=== PATIENT | male | born 2000 | race Hispanic/Latino ===

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

== ENCOUNTER 2020-11-11 05:30 | Emergency (ER) | payer SELFPAY ==
--- OUTSIDE RECORDS SUMMARY | 2020-11-11 05:33 | XMS REPORT | Continuity of Care Document ---
:2000 Author Organization [facility] t Address [address] [place] [address] Dr. Whipple [address] [place] [id number] Care Team Providers Name Role Phone Unavailable Unavailable Unavailable Problems This patient has no known problems. Allergies, Adverse Reactions, Alerts This patient has no known allergies or adverse reactions. Medications This patient has no known medications. Procedures This patient has no known procedures. Results This patient has no known results.
--- NOTE | 2020-11-11 05:54 | ER ---
Nurse's Notes [facility] Name: Lemuel Sotomayor Age: 19 yrs Sex: Male : 2000 Arrival Date: 11/11/2020 Time: 05:35 Bed 6 Private MD: Diagnosis: Pain in left knee Presentation: 11/11 05:44 Chief complaint: Patient states: when he was at work this morning he started having bb pain in his left knee with a sharp pain up the back of his thigh. Coronavirus screen: At this time, the client does not indicate any symptoms associated with coronavirus-19. Ebola Screen: No symptoms or risks identified at this time. Initial Sepsis Screen: Does the patient meet any 2 criteria? No. Patient's initial sepsis screen is negative. Does the patient have a suspected source of infection? No. Patient's initial sepsis screen is negative. Risk Assessment: Do you want to hurt yourself or someone else? Patient reports no desire to harm self or others. Onset of symptoms was November 11, 2020. 05:44 Method Of Arrival: Ambulatory bb 05:44 Acuity: HARSH 4 bb Historical: - Allergies: 05:46 No Known Allergies; bb - Home Meds: 05:46 None [Active]; bb - PMHx: 05:46 ADD/ADHD; bb - Immunization history:: Adult Immunizations up to date. - Social history:: Smoking status: unknown. - Family history:: not pertinent. - Hospitalizations: : No recent hospitalization is reported. Screenin:04 Abuse screen: Denies threats or abuse. Nutritional screening: No deficits noted. jb4 Tuberculosis screening: No symptoms or risk factors identified. Fall Risk None identified. Assessment: 06:04 General: Appears in no apparent distress. comfortable, Behavior is calm, cooperative, jb4 appropriate for age. Pain: Complains of pain in left knee Pain does not radiate. Pain currently is 4 out of 10 on a pain scale. Neuro: Level of Consciousness is awake, alert, obeys commands, Oriented to person, place, time, situation. Cardiovascular: Patient's skin is warm and dry. Respiratory: Airway is patent Respiratory effort is even, unlabored, Respiratory pattern is regular, symmetrical. GI: No signs and/or symptoms were reported involving the gastrointestinal system. : No signs and/or symptoms were reported regarding the genitourinary system. EENT: No signs and/or symptoms were reported regarding the EENT system. Derm: Skin is intact, Skin is pink, warm \T\ dry. Musculoskeletal: Circulation, motion, and sensation intact. Range of motion: intact in all extremities. 06:06 Reassessment: Left knee wrapped with LENNIE bandage. jb4 Vital Signs: 05:44 BP 121 / 80; Pulse 62; Resp 14 S; Temp 97.5(O); Pulse Ox 100% on R/A; Weight 64.86 kg bb (R); Height 5 ft. 11 in. (180.34 cm) (R); Pain 4/10; 05:44 Body Mass Index 19.94 (64.86 kg, 180.34 cm) ED Course: 05:35 Patient arrived in ED. bp1 05:39 Kale Flores MD is Attending Physician. rn 05:43 Lee Palacio RN is Primary Nurse. jb4 05:45 Triage completed. bb 05:46 Arm band placed on Patient placed in an exam room, on a stretcher, on pulse oximetry. bb 06:04 Patient has correct armband on for positive identification. Bed in low position. Call jb4 light in reach. Side rails up X 1. 06:04 No provider procedures requiring assistance completed. Patient did not have IV access jb4 during this emergency room visit. Administered Medications: No medications were administered Outcome: 05:53 Discharge ordered by . rn 06:04 Discharged to home ambulatory. jb4 06:04 Condition: stable 06:04 Discharge instructions given to patient, Instructed on discharge instructions, follow up and referral plans. Demonstrated understanding of instructions, follow-up care. 06:07 Patient left the ED. jb4 Signatures: Jocelyn Clement RN RN bb Kale Flores MD MD rn Bryson, James, RN RN jb4 Jacqueline Mcleod bp1
--- NOTE | 2020-11-11 05:54 | EDPHYS ---
Physician Documentation [facility] Name: Lemuel Sotomayor Age: 19 yrs Sex: Male : 2000 Arrival Date: 11/11/2020 Time: 05:35 Bed 6 Private MD: ED Physician Kale Flores HPI: 11/11 05:49 This 19 yrs old Male presents to ER via Ambulatory with complaints of Knee rn Pain. 05:49 The patient presents with pain. The complaints affect the left knee. Onset: The rn symptoms/episode began/occurred yesterday. Modifying factors: The symptoms are alleviated by remaining still, the symptoms are aggravated by movement, weight bearing. Associated signs and symptoms: Pertinent negatives calf tenderness, fever, numbness, rash, swelling, warmth, weakness. Treatment prior to arrival includes: no previous treatment. Severity of symptoms: At their worst the symptoms were moderate, in the emergency department the symptoms have improved. The patient has not experienced similar symptoms in the past. Reports at work, began to feel pain in left knee, no trauma, no swelling, no redness, uses left leg a lot and kneels a lot. . Historical: - Allergies: 05:46 No Known Allergies; bb - Home Meds: 05:46 None [Active]; bb - PMHx: 05:46 ADD/ADHD; bb - Immunization history:: Adult Immunizations up to date. - Social history:: Smoking status: unknown. - Family history:: not pertinent. - Hospitalizations: : No recent hospitalization is reported. ROS: 05:49 Constitutional: Negative for fever, chills, and weight loss, MS/Extremity: Negative for rn injury and deformity, + left knee pain. Skin: Negative for injury, rash, and discoloration, Neuro: Negative for weakness, numbness, tingling Exam: 05:49 Constitutional: This is a well developed, well nourished patient who is awake, alert, rn and in no acute distress. Ambulated without assistance to room. MS/ Extremity: Pulses equal, no cyanosis. Neurovascular intact. Full, normal range of motion. Equal circumference. NO erythema/warmth/swelling/deformity. Vital Signs: 05:44 BP 121 / 80; Pulse 62; Resp 14 S; Temp 97.5(O); Pulse Ox 100% on R/A; Weight 64.86 kg bb (R); Height 5 ft. 11 in. (180.34 cm) (R); Pain 410; 05:44 Body Mass Index 19.94 (64.86 kg, 180.34 cm) bb MDM: 05:39 Patient medically screened. rn 05:49 Differential diagnosis: tendonitis, small effusion. Data reviewed: vital signs, nurses rn notes, and as a result, I will discharge patient. Counseling: I had a detailed discussion with the patient and/or guardian regarding: the historical points, exam findings, and any diagnostic results supporting the discharge/admit diagnosis, the need for outpatient follow up, to return to the emergency department if symptoms worsen or persist or if there are any questions or concerns that arise at home. Refusal of service: The patient/guardian displays adequate decision making capability and despite a detailed discussion of alternatives, benefits, risks, and consequences refuses: Medications. Special discussion: I discussed with the patient/guardian in detail that at this point there is no indication for admission to the hospital. It is understood, however, that if the symptoms persist or worsen the patient needs to return immediately for re-evaluation. Based on the history and exam findings, there is no indication for further emergent testing or inpatient evaluation. I discussed with the patient/guardian the need to see the orthopedic surgeon for further evaluation of the symptoms. ED course: Recommend RICE therapy, aleve, knee brace. No signs of fracture/dislocation/infection.. Administered Medications: No medications were administered Disposition: 11/11/20 05:53 Discharged to Home. Impression: Pain in left knee. - Condition is Stable. - Discharge Instructions: Knee Pain. - Medication Reconciliation Form, Thank You Letter, Antibiotic Education, Prescription Opioid Use form. - Follow up: Private Physician; When: As needed; Reason: Recheck today's complaints, Re-evaluation by your physician. - Problem is new. - Symptoms have improved. Signatures: Jocelyn Clement RN RN Kale Mustafa MD MD rn Bryson, James, RN RN jb4 Corrections: (The following items were deleted from the chart) 06:07 05:53 11/11/2020 05:53 Discharged to Home. Impression: Pain in left knee. Condition is jb4 Stable. Forms are Medication Reconciliation Form, Thank You Letter, Antibiotic Education, Prescription Opioid Use. Follow up: Private Physician; When: As needed; Reason: Recheck today's complaints, Re-evaluation by your physician. Problem is new. Symptoms have improved. rn
[2020-11-11 06:18] VITALS: BP 121/80; TEMP 97.5; O2SAT 100
== END 2020-11-11 06:07 | disposition home or self-care (01) ==
LOC: ER 05:30
DX: M25.562 Pain in left knee (principal); F90.9 Attention-deficit hyperactivity disorder, unspecified type
CPT/HCPCS: 99283

== ENCOUNTER 2021-05-17 19:03 | Emergency (ER) | payer SELFPAY ==
--- OUTSIDE RECORDS SUMMARY | 2021-05-17 19:17 | XMS REPORT | Continuity of Care Document ---
:2000 Author Organization [facility] t Address [address] [place] [address] Dr. Whipple [address] [place] [id number] Care Team Providers Name Role Phone Unavailable Unavailable Unavailable Problems This patient has no known problems. Allergies, Adverse Reactions, Alerts This patient has no known allergies or adverse reactions. Medications This patient has no known medications. Procedures This patient has no known procedures. Results This patient has no known results.
--- NOTE | 2021-05-17 22:12 | EDPHYS ---
Physician Documentation [facility] Name: Lemuel Sotomayor Age: 20 yrs Sex: Male : 2000 Arrival Date: 05/17/2021 Time: 19:07 Bed 12 Private MD: ED Physician Brain Forbes HPI: 05/17 19:30 This 20 yrs old Male presents to ER via Ambulatory with complaints of r/o jmm covid. 19:30 The patient or guardian reports cough. Modifying factors: The symptoms are alleviated jmm by nothing. the symptoms are aggravated by nothing. Associated signs and symptoms: Pertinent positives: fever, sore throat. It is unknown whether or not the patient has had similar symptoms in the past. The patient has not recently seen a physician. Historical: - Allergies: 19:14 No Known Allergies; jh5 - Home Meds: 19:14 None [Active]; 5 - PMHx: 19:14 ADD/ADHD; [facility] - Immunization history:: Adult Immunizations up to date. - Social history:: Smoking status: Patient reports the use of cigarette tobacco products, Patient uses alcohol, occasionally. ROS: 19:30 Constitutional: Positive for body aches, fever. jmm 19:30 ENT: Positive for sinus congestion, sore throat. 19:30 Respiratory: Positive for cough. 19:30 All other systems are negative. Exam: 19:30 Constitutional: This is a well developed, well nourished patient who is awake, alert, jmm and in no acute distress. Head/Face: atraumatic. Eyes: EOMI, no conjunctival erythema appreciated ENT: Moist Mucus Membranes Neck: Trachea midline, Supple Chest/axilla: Normal chest wall appearance and motion. Cardiovascular: Regular rate and rhythm. No edema appreciated Respiratory: Normal respirations, no respiratory distress appreciated Abdomen/GI: Non distended, soft Back: Normal ROM Skin: General appearance color normal MS/ Extremity: Moves all extremities, no obvious deformities appreciated, no edema noted to the lower extremities Neuro: Awake and alert, normal gait Psych: Behavior is normal, Mood is normal, Patient is cooperative and pleasant Vital Signs: 19:11 BP 118 / 76; Pulse 98; Resp 18; Temp 99.6; Pulse Ox 96% ; Weight 61.69 kg; Height 5 ft. jh 11 in. (180.34 cm); 22:21 Pulse 90; Resp 16 S; Temp 100(O); Pulse Ox 99% on R/A; bb 19:11 Body Mass Index 18.97 (61.69 kg, 180.34 cm) 5 MDM: 21:34 Patient medically screened. [facility] 22:10 Data reviewed: vital signs, nurses notes. Counseling: I had a detailed discussion with mary the patient and/or guardian regarding: the historical points, exam findings, and any diagnostic results supporting the discharge/admit diagnosis, lab results, the need for outpatient follow up, to return to the emergency department if symptoms worsen or persist or if there are any questions or concerns that arise at home. 05/17 19:30 Order name: COVID-19 SARS RT PCR (Document "Date of Onset" if Symptomatic); Complete bb Time: 21:48 Administered Medications: No medications were administered Disposition: 05/18 07:19 Co-signature as Attending Physician, Brain Forbes MD I agree with the assessment and [facility] plan of care. Disposition Summary: 05/17/21 22:12 Discharge Ordered Location: Home [facility] Condition: Stable [facility] Diagnosis - Coronavirus infection, unspecified [facility] Followup: [facility] - With: Private Physician - When: 2 - 3 days - Reason: Recheck today's complaints, Continuance of care, Re-evaluation by your physician Discharge Instructions: - Discharge Summary Sheet [facility] - COVID-[address] [facility] Forms: - Medication Reconciliation Form [facility] - Thank You Letter [facility] - Antibiotic Education [facility] - Prescription Opioid Use [facility] Signatures: Dispatcher [employer] Brain Lockhart MD MD cha Mickail, Joel, PA PA jmm Rees, Jessica, RN RN jh5
--- NOTE | 2021-05-17 22:12 | ER ---
Nurse's Notes [facility] Name: Lemuel Sotomayor Age: 20 yrs Sex: Male : 2000 Arrival Date: 05/17/2021 Time: 19:07 Bed 12 Private MD: Diagnosis: Coronavirus infection, unspecified Presentation: 05/17 19:11 Chief complaint: Patient states: "I have runny nose, face is sore, and I have 102 fever jh5 since yesterday". Coronavirus screen: Vaccine status: Patient reports being unvaccinated. Client denies travel out of the [place] in the last 14 days. Ebola Screen: Patient negative for fever greater than or equal to 101.5 degrees Fahrenheit, and additional compatible Ebola Virus Disease symptoms Patient denies exposure to infectious person. Patient denies travel to an Ebola-affected area in the 21 days before illness onset. No symptoms or risks identified at this time. Initial Sepsis Screen: Does the patient meet any 2 criteria? No. Patient's initial sepsis screen is negative. Does the patient have a suspected source of infection? No. Patient's initial sepsis screen is negative. Risk Assessment: Do you want to hurt yourself or someone else? Patient reports no desire to harm self or others. Onset of symptoms was May 16, 2021. 19:11 Method Of Arrival: Ambulatory [facility] 19:11 Acuity: HARSH 3 jh5 Triage Assessment: 19:15 General: Appears uncomfortable, slender, Behavior is calm, cooperative, appropriate for [facility] age. Pain: Complains of pain in face Pain currently is 8 out of 10 on a pain scale. Neuro: No deficits noted. Level of Consciousness is awake, alert, obeys commands, Oriented to person, place, time, situation, Speech is normal. Cardiovascular: Capillary refill < 3 seconds Patient's skin is warm and dry. Respiratory: No deficits noted. Airway is patent Trachea midline Respiratory effort is even, unlabored, Respiratory pattern is regular, symmetrical. Historical: - Allergies: 19:14 No Known Allergies; [facility] - Home Meds: 19:14 None [Active]; [facility] - PMHx: 19:14 ADD/ADHD; [facility] - Immunization history:: Adult Immunizations up to date. - Social history:: Smoking status: Patient reports the use of cigarette tobacco products, Patient uses alcohol, occasionally. Screenin:28 Abuse screen: Denies threats or abuse. Denies injuries from another. Nutritional [facility] screening: No deficits noted. Tuberculosis screening: No symptoms or risk factors identified. Fall Risk None identified. Assessment: 19:35 Reassessment: see triage assessment. [facility] 22:20 Reassessment: Patient is alert, oriented x 3, equal unlabored respirations, skin bb warm/dry/pink. pt seen by this nurse on discharge pt verbalized understanding of and agrees to plan of care discharge instructions given pt ambulated with steady gait to exit accompanied by parent. Vital Signs: 19:11 BP 118 / 76; Pulse 98; Resp 18; Temp 99.6; Pulse Ox 96% ; Weight 61.69 kg; Height 5 ft. [facility] 11 in. (180.34 cm); 22:21 Pulse 90; Resp 16 S; Temp 100(O); Pulse Ox 99% on R/A; bb 19:11 Body Mass Index 18.97 (61.69 kg, 180.34 cm) [facility] ED Course: 19:07 Patient arrived in ED. as 19:14 Triage completed. [facility] 19:28 Arm band placed on right wrist. [facility] 19:28 Patient has correct armband on for positive identification. Adult w/ patient. [facility] 19:28 No provider procedures requiring assistance completed. [facility] 19:35 COVID-19 SARS RT PCR (Document "Date of Onset" if Symptomatic) Sent. [facility] 21:27 [facility] 21:27 Brain Forbes MD is Attending Physician. [facility] 22:23 Patient did not have IV access during this emergency room visit. bb Administered Medications: No medications were administered Outcome: 22:12 Discharge ordered by . mary 22:23 Patient left the ED. bb 22:23 Discharged to home ambulatory. 22:23 Condition: stable 22:23 Discharge instructions given to patient, Instructed on discharge instructions, follow up and referral plans. Demonstrated understanding of instructions, follow-up care. Signatures: Jeremy Garza PA PA jmm Martinez, Amelia as Ballard, Brenda, RN RN Rosalia Chilel RN RN [facility]
[2021-05-17 23:13] VITALS: BP 118/76; TEMP 99.6; O2SAT 96
== END 2021-05-17 22:23 | disposition home or self-care (01) ==
LOC: ER 19:03
DX: U07.1 COVID-19 (principal)
CPT/HCPCS: 99283; U0003

== ENCOUNTER 2021-05-18 20:07 | Emergency (ER) | payer SELFPAY ==
--- OUTSIDE RECORDS SUMMARY | 2021-05-18 20:10 | XMS REPORT | Continuity of Care Document ---
:2000 Author Organization [facility] t Address [address] [place] [address] Dr. Whipple [address] [place] [id number] Care Team Providers Name Role Phone Unavailable Unavailable Unavailable Problems This patient has no known problems. Allergies, Adverse Reactions, Alerts This patient has no known allergies or adverse reactions. Medications This patient has no known medications. Procedures This patient has no known procedures. Results This patient has no known results.
--- NOTE | 2021-05-18 21:35 | EDPHYS ---
Physician Documentation [facility] Name: Lemuel Sotomayor Age: 20 yrs Sex: Male : 2000 Arrival Date: 05/18/2021 Time: 20:09 Bed 12 Private MD: ED Physician Dilshad Abrams HPI: 05/18 21:20 This 20 yrs old Male presents to ER via EMS with complaints of Anxiety. cp 21:20 The patient is experiencing blurred vision. cp 21:20 Onset: The symptoms/episode began/occurred today. Duration: the symptoms single episode cp that is now resolved. Associated signs and symptoms: Pertinent positives: dizziness, cough. Patient reports he was at home with family member when he noticed his vision became blurry. Patient reports testing positive yesterday for COVID-19. Historical: - Allergies: 20:15 No Known Allergies; ld1 - Home Meds: 20:15 None [Active]; ld1 - PMHx: 20:15 ADD/ADHD; Anxiety; ld1 - PSHx: 20:15 None; ld1 - Immunization history:: Adult Immunizations not up to date, Client reports having NOT received the Covid vaccine. - Social history:: Smoking status: Patient reports the use of cigarette tobacco products, smokes one-half pack cigarettes per day, Patient uses alcohol, on a daily basis. Patient/guardian denies using street drugs. ROS: 21:25 Constitutional: Negative for body aches, chills, fever, poor PO intake. cp 21:25 Eyes: Positive for blurry vision, Negative for pain, redness, vision loss. cp 21:25 ENT: Negative for drainage from ear(s), ear pain, difficulty swallowing, difficulty handling secretions. 21:25 Cardiovascular: Negative for chest pain. 21:25 Respiratory: Negative for cough, shortness of breath, wheezing. 21:25 Abdomen/GI: Negative for abdominal pain, nausea, vomiting, and diarrhea. 21:25 Skin: Negative for rash. 21:25 Neuro: Positive for dizziness, Negative for altered mental status, headache, weakness. 21:25 All other systems are negative. Exam: 21:30 Constitutional: The patient appears in no acute distress, alert, awake, non-toxic, well cp developed, well nourished. 21:30 Head/Face: Normocephalic, atraumatic. cp 21:30 Eyes: Periorbital structures: appear normal, Pupils: equal, round, and reactive to light and accomodation, Extraocular movements: intact throughout, Conjunctiva: normal, no exudate, no injection, Sclera: no appreciated abnormality, Lids and lashes: appear normal, bilaterally. 21:30 ENT: External ear(s): are unremarkable, Nose: is normal, Mouth: Lips: moist, Oral mucosa: pink and intact, moist, Posterior pharynx: Airway: no evidence of obstruction, patent, Tonsils: are normal in appearance, erythema, is not appreciated, exudate, is not appreciated. 21:30 Neck: ROM/movement: is normal, is supple, without pain, no range of motions limitations, no meningismus. 21:30 Chest/axilla: Inspection: normal, Palpation: is normal, no crepitus, no tenderness. 21:30 Cardiovascular: Rate: normal, Rhythm: regular. 21:30 Respiratory: the patient does not display signs of respiratory distress, Respirations: normal, no use of accessory muscles, no retractions, labored breathing, is not present, Breath sounds: are clear throughout, no bronchial sounds. 21:30 Abdomen/GI: Exam negative for discomfort, distension, guarding, Inspection: abdomen appears normal. 21:30 Neuro: Orientation: to person, place \T\ time. Mentation: is normal, Motor: moves all fours, strength is normal, Sensation: is normal. Vital Signs: 20:13 BP 122 / 92; Pulse 87; Resp 24; Temp 99.2; Pulse Ox 100% on R/A; Weight 61.69 kg; ld1 Height 5 ft. 11 in. (180.34 cm); Pain 0/10; 20:13 Body Mass Index 18.97 (61.69 kg, 180.34 cm) ld1 MDM: 21:16 Patient medically screened. cp 21:30 Differential diagnosis: dehydration, anxiety, electrolyte abnormality, sepsis. cp Administered Medications: No medications were administered Disposition Summary: 05/18/21 21:34 Discharge Ordered Location: Home cp Problem: new cp Symptoms: have improved cp Condition: Stable cp Diagnosis - Other subjective visual disturbances - blurry vision cp - SARS-associated coronavirus as the cause of diseases classified elsewhere cp Followup: cp - With: Private Physician - When: 2 - 3 days - Reason: Worsening of condition Discharge Instructions: - Discharge Summary Sheet cp - COVID-19 cp - Things to Know about the COVID-19 Pandemic - [facility] cp - 10 Things You Can Do to Manage Your COVID-19 Symptoms at Home - [facility] cp - COVID-19: Quarantine vs. Isolation - [facility] cp - Prevent the Spread of COVID-19 if You Are Sick - [facility] cp Forms: - Medication Reconciliation Form cp - Thank You Letter cp - Antibiotic Education cp - Prescription Opioid Use cp Addendum: 05/20/2021 03:05 Co-signature as Attending Physician, Dilshad Abrams MD. m Signatures: Brain Arndt PA PA cp Holmes, Maurice, MD MD mh7 Lynette Day RN RN ld1
--- NOTE | 2021-05-18 21:35 | ER ---
Nurse's Notes [facility] Name: Lemuel Sotomayor Age: 20 yrs Sex: Male : 2000 Arrival Date: 05/18/2021 Time: 20:09 Bed 12 Private MD: Diagnosis: Other subjective visual disturbances-blurry vision;SARS-associated coronavirus as the cause of diseases classified elsewhere Presentation: 05/18 20:13 Chief complaint: Patient states: I have really bad anxiety and I tested positive ld1 yesterday for COVID. I was told if I start feeling worse that I need to come back to the ER. Pt reports vision going blurry. Coronavirus screen: Client reports previous positive COVID test result. Date of collection: May 17, 2021. Ebola Screen: (+) Ebola Screening. Initial Sepsis Screen: Does the patient meet any 2 criteria? No. Patient's initial sepsis screen is negative. Does the patient have a suspected source of infection? No. Patient's initial sepsis screen is negative. Risk Assessment: Do you want to hurt yourself or someone else? Patient reports no desire to harm self or others. Onset of symptoms was May 18, 2021. 20:13 Method Of Arrival: EMS: [facility] ld1 20:13 Acuity: HARSH 3 ld1 Triage Assessment: 20:15 General: Appears in no apparent distress. comfortable, Behavior is cooperative, ld1 anxious. Pain: Complains of pain in forehead. Pain: Pain does not radiate. Pain currently is 8 out of 10 on a pain scale. Quality of pain is described as throbbing, Pain began suddenly, Is continuous. EENT: No signs and/or symptoms were reported regarding the EENT system. Neuro: Level of Consciousness is awake, alert, obeys commands, Oriented to person, place, time, situation, Appropriate for age. Cardiovascular: Capillary refill < 3 seconds Patient's skin is warm and dry. Respiratory: Airway is patent Respiratory effort is even, labored, Respiratory pattern is regular, symmetrical. GI: Abdomen is flat, non-distended. : No signs and/or symptoms were reported regarding the genitourinary system. Derm: No signs and/or symptoms reported regarding the dermatologic system. Musculoskeletal: No signs and/or symptoms reported regarding the musculoskeletal system. Historical: - Allergies: 20:15 No Known Allergies; ld1 - Home Meds: 20:15 None [Active]; ld1 - PMHx: 20:15 ADD/ADHD; Anxiety; ld1 - PSHx: 20:15 None; ld1 - Immunization history:: Adult Immunizations not up to date, Client reports having NOT received the Covid vaccine. - Social history:: Smoking status: Patient reports the use of cigarette tobacco products, smokes one-half pack cigarettes per day, Patient uses alcohol, on a daily basis. Patient/guardian denies using street drugs. Screenin:12 Abuse screen: Denies threats or abuse. Denies injuries from another. Nutritional ld1 screening: No deficits noted. Tuberculosis screening: No symptoms or risk factors identified. Fall Risk None identified. Assessment: 21:12 Reassessment: See triage assessment. ld1 21:55 Reassessment: Patient appears in no apparent distress at this time. Patient and/or vg1 family updated on plan of care and expected duration. Pain level reassessed. Patient is alert, oriented x 3, equal unlabored respirations, skin warm/dry/pink. Patient denies pain at this time. Vital Signs: 20:13 BP 122 / 92; Pulse 87; Resp 24; Temp 99.2; Pulse Ox 100% on R/A; Weight 61.69 kg; ld1 Height 5 ft. 11 in. (180.34 cm); Pain 0/10; 20:13 Body Mass Index 18.97 (61.69 kg, 180.34 cm) ld1 ED Course: 20:09 Patient arrived in ED. bp1 20:15 Triage completed. ld1 20:15 Arm band placed on right wrist. ld1 21:12 Brain Arndt PA is PHCP. cp 21:12 Dilshad Abrams MD is Attending Physician. cp 21:12 Lynette Day RN is Primary Nurse. ld1 21:12 Patient has correct armband on for positive identification. Bed in low position. Call ld1 light in reach. Pulse ox on. NIBP on. 21:12 Side rails up X2. Door closed. Noise minimized. Warm blanket given. ld1 21:12 No provider procedures requiring assistance completed. ld1 21:56 Patient did not have IV access during this emergency room visit. vg1 Administered Medications: No medications were administered Outcome: 21:34 Discharge ordered by . cp 21:56 Discharged to home ambulatory, with family. vg1 21:56 Condition: stable 21:56 Discharge instructions given to patient, Instructed on discharge instructions, follow up and referral plans. Demonstrated understanding of instructions, follow-up care. 21:56 Patient left the ED. vg1 Signatures: Brain Arndt PA PA cp Garcia, Victoria, RN RN vg1 Jacqueline Mcleod Lauren, RN RN ld1
[2021-05-18 22:36] VITALS: BP 122/92; TEMP 99.2; O2SAT 100
== END 2021-05-18 21:56 | disposition home or self-care (01) ==
LOC: ER 20:07
DX: U07.1 COVID-19 (principal); F17.210 Nicotine dependence, cigarettes, uncomplicated
CPT/HCPCS: 99283

== ENCOUNTER 2021-11-06 23:11 | Emergency (ER) | payer OTHER, SELFPAY ==
--- OUTSIDE RECORDS SUMMARY | 2021-11-06 23:14 | XMS REPORT | Continuity of Care Document ---
:2000 Author Organization [facility] t Address [address] [place] [address] Dr. Whipple [address] [place] [id number] Care Team Providers Name Role Phone Unavailable Unavailable Unavailable Problems This patient has no known problems. Allergies, Adverse Reactions, Alerts This patient has no known allergies or adverse reactions. Medications This patient has no known medications. Procedures This patient has no known procedures. Results This patient has no known results.
--- NOTE | 2021-11-07 01:19 | ER ---
Nurse's Notes [facility] Name: Lemuel Sotomayor Age: 20 yrs Sex: Male : 2000 Arrival Date: 11/06/2021 Time: 23:14 Bed 8 Private MD: Diagnosis: Chest pain, unspecified Presentation: 11/06 23:28 Chief complaint: Patient states: Chest pain intermittent x 2 days, reports pain changes lp1 from left and right side of chest, states nausea; Denies fever. Coronavirus screen: At this time, the client does not indicate any symptoms associated with coronavirus-19. Ebola Screen: No symptoms or risks identified at this time. Risk Assessment: Do you want to hurt yourself or someone else? Patient reports no desire to harm self or others. Onset of symptoms was November 06, 2021. 23:28 Method Of Arrival: Ambulatory lp1 23:28 Acuity: HARSH 3 lp1 23:31 Initial Sepsis Screen: Does the patient meet any 2 criteria? No. Patient's initial lp1 sepsis screen is negative. Does the patient have a suspected source of infection? No. Patient's initial sepsis screen is negative. Triage Assessment: 23:33 General: Appears in no apparent distress. Behavior is calm, cooperative. Pain: lp1 Complains of pain in anterior aspect of right upper chest and anterior aspect of left upper chest. Neuro: Level of Consciousness is awake, alert, obeys commands. Respiratory: Respiratory effort is even, unlabored. Derm: Skin is pink, warm \T\ dry. Historical: - Allergies: 23:30 No Known Allergies; lp1 - Home Meds: 23:30 None [Active]; lp1 - PMHx: 23:30 ADD/ADHD; Anxiety; lp1 - PSHx: 23:30 None; lp1 - Immunization history:: Adult Immunizations up to date, Client reports receiving the 2nd dose of the Covid vaccine. - Social history:: Smoking status: Patient reports the use of cigarette tobacco products, denies chronic smoking, but will smoke occasionally, Reported history of juuling and/or vaping. Patient/guardian denies using alcohol, street drugs. - Family history:: not pertinent. - Hospitalizations: : No recent hospitalization is reported. Screenin/10 01:15 Abuse screen: Denies threats or abuse. Denies injuries from another. Nutritional lg3 screening: No deficits noted. Tuberculosis screening: No symptoms or risk factors identified. Fall Risk None identified. Assessment: 01:15 General: Appears in no apparent distress. comfortable, Behavior is cooperative, lg3 anxious. Pain: Complains of pain in chest Pain does not radiate. Neuro: No deficits noted. Aquino Agitation-Sedation Scale (RASS): 0 - Alert and Calm Level of Consciousness is awake, alert, obeys commands, Oriented to person, place, time, situation. Cardiovascular: Reports chest pain, Capillary refill < 3 seconds Clubbing of nail beds is absent JVD is absent Patient's skin is warm and dry. Respiratory: No deficits noted. Airway is patent Trachea midline Respiratory effort is even, unlabored, Respiratory pattern is regular, symmetrical. GI: No deficits noted. No signs and/or symptoms were reported involving the gastrointestinal system. : No deficits noted. No signs and/or symptoms were reported regarding the genitourinary system. EENT: No deficits noted. No signs and/or symptoms were reported regarding the EENT system. Derm: No deficits noted. No signs and/or symptoms reported regarding the dermatologic system. Skin is intact, is healthy with good turgor, Skin is dry, Skin is pink, warm \T\ dry. Musculoskeletal: No deficits noted. No signs and/or symptoms reported regarding the musculoskeletal system. Circulation, motion, and sensation intact. Range of motion: intact in all extremities. Vital Signs: 11/06 23:31 BP 114 / 85; Pulse 62; Resp 16; Temp 98(O); Pulse Ox 100% on R/A; Weight 63.5 kg (R); lp1 Height 5 ft. 11 in. (180.34 cm); Pain 0/10; 05 01:16 BP 102 / 62; Pulse 56; Resp 16 S; Pulse Ox 100% on R/A; lg3 11/06 23:31 Body Mass Index 19.53 (63.50 kg, 180.34 cm) lp1 ED Course: 11/06 23:14 Patient arrived in ED. bp1 23:28 Arm band placed on right wrist. lp1 23:30 Triage completed. lp1 23:33 Patient maintains SpO2 saturation greater than 95% on room air. lp1 23:49 Kale Flores MD is Attending Physician. rn 23:56 Wei, Stella, RN is Primary Nurse. lg3 11/07 00:13 XRAY Chest Pa And Lat (2 Views) In Process Unspecified. EDMS 01:15 Patient has correct armband on for positive identification. Placed in gown. Bed in low lg3 position. Call light in reach. Side rails up X 1. Client placed on continuous cardiac and pulse oximetry monitoring. NIBP monitoring applied. Door closed. Noise minimized. Warm blanket given. Administered Medications: No medications were administered Outcome: 01:19 Discharge ordered by . rn 02:13 Patient left the ED. lg3 Signatures: Dispatcher [employer] EDMS Kale Flores MD MD rn Pena, Laura RN RN lp1 Stella Wei, RN RN lg3 Jacqueline Mcleod bp1
--- NOTE | 2021-11-07 01:19 | EDPHYS ---
Physician Documentation [facility] Name: Lemuel Sotomayor Age: 20 yrs Sex: Male : 2000 Arrival Date: 11/06/2021 Time: 23:14 Bed 8 Private MD: ED Physician Kale Flores HPI: 11/07 01:13 This 20 yrs old Male presents to ER via Ambulatory with complaints of Chest Pain. rn 01:13 The patient or guardian reports chest pain that is located primarily in the chest rn diffusely. The pain does not radiate. Associated signs and symptoms: The patient has no apparent associated signs or symptoms, Pertinent negatives: abdominal pain, cough, dizziness, lower extremity pain, lower extremity swelling, palpitations, shortness of breath, syncope, vomiting. The chest pain is described as sharp, stabbing. Duration: The patient or guardian reports multiple episodes, that are intermittent. Duration: The patient or guardian reports multiple episodes, the episodes last approximately 10 second(s). Modifying factors: The symptoms are alleviated by nothing. the symptoms are aggravated by nothing. Severity of pain: At its worst the pain was mild in the emergency department the pain is unchanged. The patient has experienced similar episodes in the past. The patient has not recently seen a physician. Pt reports weeks of bilateral chest pain, intermittent, sharp/stabbing, nothing makes it better or worse. No famhx of early cardiac problems/disease. No trauma. No hemoptysis. No leg pain or swelling. + vapes. Reports "happening for weeks". Historical: - Allergies: 11/06 23:30 No Known Allergies; lp1 - Home Meds: 23:30 None [Active]; lp1 - PMHx: 23:30 ADD/ADHD; Anxiety; lp1 - PSHx: 23:30 None; lp1 - Immunization history:: Adult Immunizations up to date, Client reports receiving the 2nd dose of the Covid vaccine. - Social history:: Smoking status: Patient reports the use of cigarette tobacco products, denies chronic smoking, but will smoke occasionally, Reported history of juuling and/or vaping. Patient/guardian denies using alcohol, street drugs. - Family history:: not pertinent. - Hospitalizations: : No recent hospitalization is reported. ROS: 11/07 01:13 Constitutional: Negative for fever, chills, and weight loss, Eyes: Negative for injury, rn pain, redness, and discharge, ENT: Negative for injury, pain, and discharge, Neck: Negative for injury, pain, and swelling, Cardiovascular: Negative for palpitations, and edema, Respiratory: Negative for shortness of breath, cough, wheezing Abdomen/GI: Negative for abdominal pain, nausea, vomiting, diarrhea, and constipation, Back: Negative for injury and pain, : Negative for injury, bleeding, discharge, and swelling, MS/Extremity: Negative for injury and deformity, Skin: Negative for injury, rash, and discoloration, Neuro: Negative for headache, weakness, numbness, tingling, and seizure. Exam: 01:13 Constitutional: This is a well developed, well nourished patient who is awake, alert, rn and in no acute distress, seems anxious. Head/Face: Normocephalic, atraumatic. Eyes: Periorbital areas with no swelling, redness, or edema. Chest/axilla: Normal chest wall appearance and motion. Nontender with no deformity. No lesions are appreciated. Cardiovascular: Regular rate and rhythm. No pulse deficits. Respiratory: No increased work of breathing, no retractions or nasal flaring. Abdomen/GI: Soft, non-tender Skin: Warm, dry with normal turgor. Normal color with no rashes, no lesions, and no evidence of cellulitis. MS/ Extremity: Pulses equal, no cyanosis. Neurovascular intact. Full, normal range of motion. Equal circumference. Neuro: Awake and alert, GCS 15 Vital Signs: 11/06 23:31 BP 114 / 85; Pulse 62; Resp 16; Temp 98(O); Pulse Ox 100% on R/A; Weight 63.5 kg (R); lp1 Height 5 ft. 11 in. (180.34 cm); Pain 0/10; 11/07 01:16 BP 102 / 62; Pulse 56; Resp 16 S; Pulse Ox 100% on R/A; lg3 11/06 23:31 Body Mass Index 19.53 (63.50 kg, 180.34 cm) lp1 MDM: 11/06 23:50 Patient medically screened. rn 11/07 01:13 Differential diagnosis: acute pericarditis, anxiety, chest wall pain, costochondritis, rn pleurisy, pneumothorax. HEART Score: History: Slightly Suspicious (0), ECG: Non specific repolarization disturbance / LBTB / PM (1), Age: < or = 45 years (0), Risk Factors: No Risk Factors Known (0), Total Score = 1. Data reviewed: vital signs, nurses notes, EKG, radiologic studies, plain films, and as a result, I will discharge patient. Counseling: I had a detailed discussion with the patient and/or guardian regarding: the historical points, exam findings, and any diagnostic results supporting the discharge/admit diagnosis, radiology results, the need for outpatient follow up, to return to the emergency department if symptoms worsen or persist or if there are any questions or concerns that arise at home. Special discussion: Based on the patient's history, exam, and Dx evaluation, there is no indication for emergent intervention or inpatient Tx. It is understood by the patient/guardian that if the Sx's persist or worsen they need to return immediately for re-evaluation. I discussed with the patient/guardian in detail that at this point there is no indication for admission to the hospital. It is understood, however, that if the symptoms persist or worsen the patient needs to return immediately for re-evaluation. ED course: CXR clear, normal vitals, ECG no ischemia and nonspecific repolarization. Will dc home with return precautions, motrin, and cessation of vaping.. 11/06 23:39 Order name: XRAY Chest Pa And Lat (2 Views) rn 11/06 23:39 Order name: EKG; Complete Time: 23:39 rn 11/06 23:39 Order name: EKG - Nurse/Tech; Complete Time: 00:38 rn Administered Medications: No medications were administered Disposition Summary: 11/07/21 01:19 Discharge Ordered Location: Home rn Problem: new rn Symptoms: have improved rn Condition: Stable rn Diagnosis - Chest pain, unspecified rn Followup: rn - With: Private Physician - When: As needed - Reason: Recheck today's complaints, Re-evaluation by your physician Discharge Instructions: - Discharge Summary Sheet rn - Nonspecific Chest Pain, Adult rn - Pleurisy rn - Steps to Quit Smoking rn Forms: - Medication Reconciliation Form rn - Thank You Letter rn - Antibiotic biology internship - Prescription Opioid Use rn Signatures: [facility] ED[facility] Kale Flores MD MD rn Pena, Laura, RN RN lp1 Corrections: (The following items were deleted from the chart) 01:14 01:13 Pt reports weeks of bilateral chest pain, intermittent, sharp/stabbing, nothing rn makes it better or worse. No famhx of early cardiac problems/disease. No trauma. No hemoptysis. No leg pain or swelling. + vapes. . rn
[2021-11-07 03:21] VITALS: TEMP 98; O2SAT 100
[2021-11-07 03:22] VITALS: BP 102/62
--- NOTE | 2021-11-07 10:18 | EKG ---
Test Date: 2021-11-07 Test Time: 00:32:20 [employer] Chief: MEASUREMENT RESULTS: Intervals: Rate: 52 AK: 152 QRSD: 86 QT: 400 QTc: 372 [place]: P: 70 AK: 152 QRS: 62 T: 78 INTERPRETIVE STATEMENTS: Sinus bradycardia with sinus arrhythmia Early repolarization Otherwise normal ECG No previous ECG available for comparison Electronically Signed On 11-07-21 10:17:23 CDT by Alessandro Chavarria
--- NOTE | 2021-11-07 12:55 | RAD REPORT ---
EXAM DESCRIPTION: RAD - Chest Pa And Lat (2 Views) - 11/07/2021 12:11 am CLINICAL HISTORY: 1 years Male, CHEST PAIN COMPARISON: None FINDINGS: No focal lung consolidation. No pleural effusion. No pneumothorax. Cardiomediastinal silhouette is within normal limits. No acute osseous abnormality. IMPRESSION: No acute cardiopulmonary disease. Electronically signed by: Fausto Mishra DO 11/07/2021 12:39 AM CDT Due to temporary technical issues with the PACS/Fluency reporting system, reports are being signed by the in house radiologists without review as a courtesy to insure prompt reporting. The interpreting radiologist is fully responsible for the content of the report.
== END 2021-11-07 02:13 | disposition home or self-care (01) ==
LOC: ER 23:11
DX: R07.9 Chest pain, unspecified (principal); F17.210 Nicotine dependence, cigarettes, uncomplicated
CPT/HCPCS: 71046; 93005; 99284

== ENCOUNTER 2022-05-21 01:08 | Emergency (ER) | payer SELFPAY ==
--- OUTSIDE RECORDS SUMMARY | 2022-05-21 01:11 | XMS REPORT | Continuity of Care Document ---
:2000 Author Organization [facility] t Address [address] [place] [address] Care Team Providers Name Role Phone Sarah Zhang MD Primary Care Physician [phone] Doctor Unassigned, [place] Attending Clinician Unavailable Problems Condition Condition Condition Status Onset Resolution Last Treating Co mments Source Name Details Category Date Date Treatment Clinician Date LVH (left LVH (left Disease Active Overview: Univers ventricula ventricula 1 Formattin ity of r r 00:00: g of this [place] hypertroph hypertroph 00 note Me dical y) y) might be Branch different from the original. Review of records indicate LVH on ECG done at age 12 (no date on record). Deviated Deviated Disease Active Overview: Un hedy nasal nasal 07-07 Formattin ity of septum septum 00:00: g of this [place] 00 note Medical might be Branch different from the original. Records on CT scan done show mild left deviation of nasal septum on CT done 0. Will scan records to EMR. Allergies, Adverse Reactions, Alerts This patient has no known allergies or adverse reactions. Social History Social Habit Start Date Stop Date Quantity Comments Source Alcohol intake 2018-06-26 2018-06-26 Current University of 00:00:00 00:00:00 non-drinker of [facility] alcohol ([facility]) [employer] Tobacco use and 2018-06-05 2018-06-05 Smokeless tobacco Un iversity of exposure 00:00:00 00:00:[address] [facility] Sex Assigned At [birth year] Universit y of 00:00:00 00:00:00 [facility] Smoking Status Start Date Stop Date Source Never smoked tobacco [facility] Medications Ordered Filled Start Stop Current Ordering Indication Dosage Frequency Signature Comments Components Source Medication Medication Date Date Medication? Clinician (SIG) Name Name PANTOPRAZOL 2017-07 Yes Take by Uni vers E SODIUM 2-06 mouth. ity of (PANTOPRAZO 13:17: [place] LE ORAL) [address] [place] [address] CETIRIZINE 2017-07 Yes Take by Univ ers HCL (ZYRTEC 2-06 mouth. ity of ORAL) 13:17: [place] [address] [place] [address] TRAZODONE 2017-07 Yes Take by Unive rs HCL 2-06 mouth. ity of (TRAZODONE 13:17: [place] ORAL) [address] [place] [address] DEXMETHYLPH 2017-07 Yes Take by Uni vers ENIDATE HCL 2-06 mouth. ity of (FOCALIN 13:17: [place] ORAL) [address] [place] [address] Polyethylen Yes ONE PACKET Univers e Glycol 9-14 DAILY ity of 3350 00:00: UNTIL [place] (MIRALAX) 00 STOOLS ARE Medi anna 17 gram SOFT Branch powder Immunizations Ordered Immunization Filled Immunization Date Status Commen ts Source Name Name Meningococcal 2013-02-17 Completed University of Polysaccharide 00:00:00 [facility] anna (groups A, C, Y and Branc h W-135) conjugate vaccine (MCV4P) Varicella 2013-02-17 Completed University (varivax)(chicken 00:00:00 [place] M edical pox) Branch TDAP 2012-12-24 Completed University of 00:00:00 [facility] HEPATITIS A 2007-02-05 Completed University of 00:00:00 [facility] DTAP 2005-01-29 Completed University of 00:00:00 [facility] HEPATITIS A 2005-01-29 Completed University of 00:00:00 [facility] Polio (IPV/OPV) 2005-01-29 Completed [facility] y of 00:00:00 [facility] DTAP 2002-10-01 Completed University of 00:00:00 [facility] HIB 4 Dose Schedule 2002-10-01 Completed [facility] rsity of 00:00:00 [facility] DTAP 2001-12-10 Completed University of 00:00:00 [facility] HIB 4 Dose Schedule 2001-12-10 Completed Unive rsity of 00:00:00 [facility] MMR 2001-12-10 Completed University of 00:00:00 [facility] Polio (IPV/OPV) 2001-12-10 Completed Universit y of 00:00:00 [facility] Varicella 2001-12-10 Completed University of (varivax)(chicken 00:00:00 [facility] edical pox) Branch DTAP 2001-10-06 Completed University of 00:00:00 [facility] HIB 4 Dose Schedule 2001-10-06 Completed Unive rsity of 00:00:00 [facility] Hep B, Adol or Pedi 2001-10-06 Completed Unive rsity of Dosage 00:00:00 [facility] Polio (IPV/OPV) 2001-10-06 Completed Universit y of 00:00:00 [facility] Pneumococcal 7 2001-10-06 Completed University of [facility], PCV7 00:00:00 [facility] ical (Prevnar7) Branch Hep B, Adol or Pedi 2001-04-14 Completed Unive rsity of Dosage 00:00:00 [facility] Hep B, Adol or Pedi 2000 Completed Unive rsity of Dosage 00:00:00 [facility] Procedures Procedure Date / Time Performed Performing Clinician [facility] e EXTERNAL PROVIDER 2022-04-10 05:01:00 Doctor Unassigned, No Univ [facility] [place] RECORDS Name [facility] Encounters Start End Encounter Admission Attending Care Care Encounter Source Date/Time Date/Time Type Type Clinicians Facility Department ID 2022-04-10 2022-04-10 Orders Doctor SOCORRO [id number] Univers 00:00:00 00:00:00 Only Unassigned, TRISTAN [id number] ity of [place] [facility] [id number] David as [id number] [place] [id number] Branch Results This patient has no known results.
[2022-05-21] MEDS ORDERED: IBUPROFEN 400 MG TAB ONE (01:31)
--- NOTE | 2022-05-21 01:32 | EDPHYS ---
Physician Documentation [facility] Name: Lemuel Sotomayor Age: 21 yrs Sex: Male : 2000 Arrival Date: 05/21/2022 Time: 01: Bed IW1 Private MD: ED Physician Marzena Rodriguez HPI: 05/21 01:27 This 21 yrs old Male presents to ER via Ambulatory with complaints of General Weakness, sd2 Headache, Fever. 01:27 21 yo M presents with CC of chills, headache, body aches and generalized weakness just sd2 starting this evening. Recent exposure to his parents who had the flu. 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 Denies any CP or SOB. . Historical: - Allergies: : No Known Allergies; tw5 - Home Meds: : None [Active]; tw5 - PMHx: : ADD/ADHD; Anxiety; tw - PSHx: : None; tw - Immunization history:: Flu vaccine is not up to date. - Social history:: Smoking status: Reported history of juuling and/or vaping. ROS: 01:27 Eyes: Negative for injury, pain, redness, and discharge, Cardiovascular: Negative for sd2 chest pain, palpitations, and edema, Respiratory: Negative for shortness of breath, cough, wheezing. 01:27 MS/Extremity: Negative for injury and deformity, Skin: Negative for injury, rash, and discoloration. 01:27 Constitutional: Positive for body aches, chills, malaise, Negative for poor PO intake. 01:27 Abdomen/GI: Positive for nausea, Negative for abdominal pain, vomiting, diarrhea. Exam: 01:27 Constitutional: This is a well developed, well nourished patient who is awake, alert, sd2 and in no acute distress. Head/Face: Normocephalic, atraumatic. Eyes: EOMI, normal conjunctiva bilaterally Chest/axilla: Normal chest wall appearance and motion. Nontender with no deformity. Cardiovascular: Regular rate and rhythm with a normal S1 and S2. No gallops, murmurs, or rubs. 2+ distal pulses. Respiratory: Lungs have equal breath sounds bilaterally, clear to auscultation and percussion. No rales, rhonchi or wheezes noted. No increased work of breathing, no retractions or nasal flaring. Abdomen/GI: Soft, non-tender, with normal bowel sounds. No guarding or rebound. No evidence of tenderness throughout. Skin: Warm, dry with normal turgor. Normal color with no rashes, no lesions, and no evidence of cellulitis. MS/ Extremity: Pulses equal, no cyanosis. Neurovascular intact. Full, normal range of motion. Ambulatory without difficulty. Psych: Awake, alert, with orientation to person, place and time. Behavior, mood, and affect are within normal limits. Vital Signs: : BP 121 / 76; Pulse 109; Resp 18; Temp 100.2; Pulse Ox 98% on R/A; Weight 63.5 kg; tw5 Height 6 ft. 0 in. (182.88 cm); Pain 10/08; :23 Body Mass Index 18.99 (63.50 kg, 182.88 cm) tw5 MDM: 01:27 Differential diagnosis: Differential diagnosis includes but is not limited to: Viral sd2 URI, acute otitis media, acute otitis externa, pneumonia, UTI, COVID, flu, herpangina among others. Data reviewed: vital signs, nurses notes. Counseling: I had a detailed discussion with the patient and/or guardian regarding: the historical points, exam findings, and any diagnostic results supporting the discharge/admit diagnosis, the need for outpatient follow up, to return to the emergency department if symptoms worsen or persist or if there are any questions or concerns that arise at home. Medical screen evaluation completed. [facility] emergency medical condition absent. ED course: Pt with flu-like symptoms. No respiratory distress or hypoxia. Low grade temp with mild tachycardia. Will treat with Ibuprofen. Pt likely with the flu with recent exposure. Offered definitive testing and pt declined. After discussion of Tamiflu, patient also declined. Will continue with supportive care at home and verbalizes understanding of discharge plan and strict return precautions.. 01:31 Patient medically screened. sd2 Administered Medications: : Drug: Ibuprofen 800 mg Route: PO; tw 01:32 Follow up: Response: No adverse reaction; Medication administered at discharge. tw5 Disposition Summary: 05/21/22 01:31 Discharge Ordered Location: Home sd2 Problem: new sd2 Symptoms: have improved sd2 Condition: Stable sd2 Diagnosis - Flu-like symptoms sd2 - Exposure to influenza sd2 Followup: sd2 - With: Private Physician - When: 2 - 3 days - Reason: Worsening of condition Discharge Instructions: - Discharge Summary Sheet sd2 - Influenza, Adult sd2 Forms: - Medication Reconciliation Form sd2 - Thank You Letter sd2 - Work release form tw5 - Antibiotic Education sd2 - Prescription Opioid Use sd2 Prescriptions: - Ibuprofen 600 mg Oral Tablet - take 1 tablet by ORAL route every 6 hours As needed take with food as needed sd2 for fever or pain; 20 tablet; Refills: 0, Product Selection Permitted Signatures: Dispatcher [employer] Natalia Hernandez tw5 Marzena Rodriguez MD MD sd2
--- NOTE | 2022-05-21 01:32 | ER ---
Nurse's Notes [facility] Name: Lemuel Sotomayor Age: 21 yrs Sex: Male : 2000 Arrival Date: 05/21/2022 Time: :11 Bed IW1 Private MD: Diagnosis: Flu-like symptoms;Exposure to influenza Presentation: 05/21 01:23 Chief complaint: Patient states: "I live in the house with my parents who just got had tw5 the flue. I was feeling weak, shacky, and I my body hurts. I have never felt that way before.". Coronavirus screen: Vaccine status: Patient reports receiving the 2nd dose of the covid vaccine. Pzifer. Ebola Screen: Patient negative for fever greater than or equal to 101.5 degrees Fahrenheit, and additional compatible Ebola Virus Disease symptoms Patient denies exposure to infectious person. Patient denies travel to an Ebola-affected area in the 21 days before illness onset. Initial Sepsis Screen: Does the patient meet any 2 criteria? HR > 90 bpm. Does the patient have a suspected source of infection? No. Patient's initial sepsis screen is negative. Risk Assessment: Do you want to hurt yourself or someone else? Patient reports no desire to harm self or others. Onset of symptoms was May 21, 2022. :23 Method Of Arrival: Ambulatory tw5 01:23 Acuity: HARSH 5 tw5 Triage Assessment: 01:26 Headache History: Denies prior headaches. General: Appears in no apparent distress. tw5 Behavior is calm, cooperative, appropriate for age. Pain: Pain currently is 4 out of 10 on a pain scale. Pain began gradually, Also complains of body aches. Neuro: No deficits noted. Historical: - Allergies: : No Known Allergies; tw5 - Home Meds: : None [Active]; tw5 - PMHx: : ADD/ADHD; Anxiety; tw5 - PSHx: None; tw5 - Immunization history:: Flu vaccine is not up to date. - Social history:: Smoking status: Reported history of juuling and/or vaping. Screenin: Abuse screen: Denies threats or abuse. Denies injuries from another. Nutritional tw5 screening: No deficits noted. Tuberculosis screening: No symptoms or risk factors identified. Fall Risk None identified. Assessment: 01:27 Pain: Pain currently is 4 out of 10 on a pain scale. Neuro: No deficits noted. tw5 Cardiovascular: No deficits noted. Respiratory: No deficits noted. GI: No deficits noted. : No deficits noted. 01:27 General: Patient refused testing. Requested medications now and work note. Vital Signs: 01:23 BP 121 / 76; Pulse 109; Resp 18; Temp 100.2; Pulse Ox 98% on R/A; Weight 63.5 kg; tw5 Height 6 ft. 0 in. (182.88 cm); Pain 4/10; 01:23 Body Mass Index 18.99 (63.50 kg, 182.88 cm) ED Course: 01:11 Patient arrived in ED. jj6 01:13 aMrzena Rodriguez MD is Attending Physician. 01:26 Triage completed. 01:26 Arm band placed on. 01:27 Patient has correct armband on for positive identification. 01:27 No provider procedures requiring assistance completed. Patient did not have IV access tw5 during this emergency room visit. 01:32 Natalia Ordonez is Primary Nurse. Administered Medications: 01:32 Drug: Ibuprofen 800 mg Route: PO; 01:32 Follow up: Response: No adverse reaction; Medication administered at discharge. Medication: 01:27 VIS not applicable for this client. Outcome: 01:31 Discharge ordered by . 2 01:32 Discharged to home ambulatory. 01:32 Condition: good 01:32 Discharge instructions given to patient, Instructed on discharge instructions, follow up and referral plans. Demonstrated understanding of instructions, follow-up care. 01:36 Patient left the ED. Signatures: Natalia Ordonez tw5 Blanca Henley jj6 Marzena Rodriguez MD MD sd2
[2022-05-21 01:44] VITALS: BP 121/76; TEMP 100.2; O2SAT 98
== END 2022-05-21 01:36 | disposition home or self-care (01) ==
LOC: ER 01:08
DX: R68.89 Other general symptoms and signs (principal); Z20.822 Contact with and (suspected) exposure to COVID-19
CPT/HCPCS: 99283

== ENCOUNTER 2022-11-24 17:52 | Emergency (ER) | payer SELFPAY ==
--- OUTSIDE RECORDS SUMMARY | 2022-11-24 17:56 | XMS REPORT | Continuity of Care Document ---
:2000 Author Organization [facility] t Address [address] [place] [address] Care Team Providers Name Role Phone Sarah Zhang MD Primary Care Physician [phone] Doctor Unassigned, [place] Attending Clinician Unavailable Problems Condition Condition Condition Status Onset Resolution Last Treating Co mments Source Name Details Category Date Date Treatment Clinician Date LVH (left LVH (left Disease Active Overview: Univers ventricula ventricula 1 Formattin ity of r r 00:00: g of this [place] hypertroph hypertroph 00 note Me dical y) y) might be Branch different from the original. Review of records indicate LVH on ECG done at age 12 (no date on record). Deviated Deviated Disease Active Overview: Un hedy nasal nasal 07-07 Formattin ity of septum septum 00:00: g of this [place] 00 note Medical might be Branch different [...] Current University of 00:00:00 00:00:00 non-drinker of [facility] alcohol ([facility]) [place] Tobacco use and 2018-06-05 2018-06-05 Smokeless tobacco Un iversity of exposure 00:00:00 00:00:00 non-user [facility] Sex Assigned At [birth year] Universit y of 00:00:00 00:00:00 [facility] Smoking Status Start Date Stop Date Source Never smoked tobacco [facility] Medications Ordered Filled Start Stop Current Ordering Indication Dosage Frequency Signature Comments Components Source Medication Medication Date Date Medication? Clinician (SIG) Name Name PANTOPRAZOL 2017-07 Yes Take by Uni vers E SODIUM 2-06 mouth. ity of (PANTOPRAZO 13:17: [place] LE ORAL) [address] [place] [address] CETIRIZINE 2017-07 Yes Take by Univ ers HCL (ZYRTEC 2-06 mouth. ity of ORAL) 13:17: [place] [address] [place] [address] TRAZODONE 2017-07 Yes Take by Unive rs HCL 2-06 mouth. ity of (TRAZODONE 13:17: [place] ORAL) [address] [place] [address] DEXMETHYLPH 2017-07 Yes Take by Uni vers ENIDATE HCL 2-06 mouth. ity of (FOCALIN 13:17: [place] ORAL) [address] [place] [address] Polyethylen Yes ONE PACKET Univers e Glycol 9-14 DAILY ity of 3350 00:00: UNTIL [place] (MIRALAX) 00 STOOLS ARE Medi anna 17 gram SOFT Branch powder Immunizations Ordered Immunization Filled Immunization Date Status Commen ts Source Name Name Meningococcal 2013-02-17 Completed University of Polysaccharide 00:00:00 [facility] anna (groups A, C, Y and Branc h W-135) conjugate vaccine (MCV4P) Varicella 2013-02-17 Completed University (varivax)(chicken 00:00:00 [place] M edical pox) Branch TDAP 2012-12-24 Completed University of 00:00:00 [facility] HEPATITIS A 2007-02-05 Completed University of 00:00:00 [facility] DTAP 2005-01-29 Completed University of 00:00:00 [facility] HEPATITIS A 2005-01-29 Completed University of 00:00:00 [facility] Polio (IPV/OPV) 2005-01-29 Completed [facility] y of 00:00:00 [facility] DTAP 2002-10-01 Completed University of 00:00:00 [facility] HIB 4 Dose Schedule 2002-10-[address] [facility] rsity of 00:00:00 [facility] DTAP 2001-12-10 Completed University of 00:00:00 [facility] HIB 4 Dose Schedule 2001-12-10 Completed Unive rsity of 00:00:00 [facility] MMR 2001-12-10 Completed University of 00:00:00 [facility] Polio (IPV/OPV) 2001-12-10 Completed Universit y of 00:00:00 [facility] Varicella 2001-12-10 Completed University of (varivax)(chicken 00:00:00 [facility] edical pox) Branch DTAP 2001-10-06 Completed University of 00:00:00 [facility] HIB 4 Dose Schedule 2001-10-06 Completed Unive rsity of 00:00:00 [facility] Hep B, Adol or Pedi 2001-10-06 Completed Unive rsity of Dosage 00:00:00 [facility] Polio (IPV/OPV) 2001-10-06 Completed Universit y of 00:00:00 [facility] Pneumococcal 7 2001-10-06 Completed University of [facility], PCV7 00:00:00 [facility] ical (Prevnar7) Branch Hep B, Adol or Pedi 2001-04-14 Completed Unive rsity of Dosage 00:00:00 [facility] Hep B, Adol or Pedi 2000 Completed Unive rsity of Dosage 00:00:00 [facility] Procedures Procedure Date / Time Performed Performing Clinician [facility] e EXTERNAL PROVIDER 2022-04-10 05:01:00 Doctor Unassigned, No Univ [facility] [place] RECORDS Name [facility] Encounters Start End Encounter Admission Attending Care Care Encounter Source Date/Time Date/Time Type Type Clinicians Facility Department ID 2022-04-10 2022-04-10 Orders Doctor SOCORRO [id number] Univers 00:00:00 00:00:00 Only Unassigned, TRISTAN [id number] ity of [place] [facility] [id number] David as [id number] [place] [address] Branch Results This patient has no known results.
--- NOTE | 2022-11-24 19:06 | EDPHYS ---
Physician Documentation [facility] Name: Lemuel Sotomayor Age: 21 yrs Sex: Male : 2000 Arrival Date: 11/24/2022 Time: 17:52 Bed DIS4 Private MD: ED Physician Brain Forbes HPI: 11/24 19:00 This 21 yrs old Male presents to ER via Unassigned with complaints of Ear Pain. cp 19:00 The patient presents with pain, that is acute. The complaints affect the right ear. cp Onset: The symptoms/episode began/occurred 1 week(s) ago. Historical: - Allergies: 19:25 No Known Allergies; pf1 - PMHx: 19:25 ADD/ADHD; Anxiety; pf1 - Immunization history:: unknown. - Social history:: Smoking status: unknown. ROS: 19:01 Constitutional: Negative for body aches, chills, fever. cp 19:01 ENT: Positive for ear pain. 19:01 Respiratory: Negative for cough, shortness of breath, wheezing. 19:01 Abdomen/GI: Negative for abdominal pain, nausea and vomiting. cp 19:01 Skin: Negative for cellulitis, rash. 19:01 All other systems are negative. Exam: 19:03 Head/Face: Normocephalic, atraumatic. cp 19:03 Constitutional: The patient appears in no acute distress, alert, awake, non-toxic, well developed, well nourished. 19:03 Eyes: Periorbital structures: appear normal, Conjunctiva: normal, no exudate, no injection, Sclera: no appreciated abnormality, Lids and lashes: appear normal, bilaterally. 19:03 ENT: External ear(s): are unremarkable, Ear canal(s): purulent discharge, is not appreciated, TM's: erythema, that is moderate, bilaterally, Nose: is normal, Mouth: Lips: moist, Oral mucosa: pink and intact, moist, Posterior pharynx: is normal, airway is patent, no erythema, no exudate. 19:03 Neck: ROM/movement: is normal, is supple, without pain, no range of motions limitations, Lymph nodes: no appreciated lymphadenopathy. 19:03 Chest/axilla: Inspection: normal. cp 19:03 Cardiovascular: Rate: normal. cp 19:03 Respiratory: the patient does not display signs of respiratory distress, Respirations: normal, no use of accessory muscles, no retractions, labored breathing, is not present, Breath sounds: are clear throughout, no decreased breath sounds, no stridor, no wheezing. Vital Signs: 19:25 BP 112 / 76; Pulse 79; Resp 18; Temp 98.2; Pulse Ox 100% on R/A; Weight 79.38 kg; Pain pf1 6/10; 19:25 Pain Scale: Adult pf1 MDM: 19:06 Patient medically screened. cp 19:06 Differential diagnosis: otitis media, otitis externa, ruptured TM, cerumen impaction, cp barotrauma . 19:06 Data reviewed: vital signs, nurses notes. Counseling: I had a detailed discussion with cp the patient and/or guardian regarding: the historical points, exam findings, and any diagnostic results supporting the discharge/admit diagnosis, to return to the emergency department if symptoms worsen or persist or if there are any questions or concerns that arise at home. Administered Medications: No medications were administered Disposition Summary: 11/24/22 19:06 Discharge Ordered Location: Home cp Problem: new cp Symptoms: are unchanged cp Condition: Stable cp Diagnosis - Acute suppurative otitis media cp Followup: cp - With: Marzena Welch MD - When: 2 - 3 days - Reason: Worsening of condition Discharge Instructions: - Discharge Summary Sheet cp - Otitis Media, Adult cp Forms: - Medication Reconciliation Form cp - Thank You Letter cp - Antibiotic Education cp - Prescription Opioid Use cp Prescriptions: - Augmentin 875-125 mg Oral Tablet - take 1 tablet by ORAL route every 12 hours for 10 days; 20 tablet; Refills: 0, cp Product Selection Permitted - Medrol (Uziel) 4 mg Oral Tablets, Dose Pack - take 1 tablet by ORAL route as directed - follow package instructions; 1 cp packet; Refills: 0, Product Selection Permitted Signatures: Brain Arndt PA PA cp Kiersten Quinonez RN RN pf1
--- NOTE | 2022-11-24 19:44 | ER ---
Nurse's Notes [facility] Name: Lemuel Sotomayor Age: 21 yrs Sex: Male : 2000 Arrival Date: 11/24/2022 Time: 17:52 Bed DIS4 Private MD: Diagnosis: Acute suppurative otitis media Presentation: 11/24 19:25 Chief complaint: Patient states: right ear pain of 6, onset 1 week. pf1 19:25 Coronavirus screen: Client denies travel out of the [place] in the last 14 days. At this pf1 time, the client does not indicate any symptoms associated with coronavirus-19. Ebola Screen: Patient negative for fever greater than or equal to 101.5 degrees Fahrenheit, and additional compatible Ebola Virus Disease symptoms. Initial Sepsis Screen: Does the patient meet any 2 criteria? No. Patient's initial sepsis screen is negative. Does the patient have a suspected source of infection? No. Patient's initial sepsis screen is negative. Risk Assessment: Do you want to hurt yourself or someone else? Patient reports no desire to harm self or others. 19:25 Method Of Arrival: Ambulatory pf1 19:25 Acuity: HARSH 5 pf1 Historical: - Allergies: 19:25 No Known Allergies; pf1 - PMHx: 19:25 ADD/ADHD; Anxiety; pf1 - Immunization history:: unknown. - Social history:: Smoking status: unknown. Screenin:25 [facility] ED Fall Risk Assessment (Adult) History of falling in the last 3 months, pf1 including since admission No falls in past 3 months (0 pts) Confusion or Disorientation No (0 pts) Intoxicated or Sedated No (0 pts) Impaired Gait No (0 pts) Mobility Assist Device Used No (0 pt) Altered Elimination No (0 pt) Score/Fall Risk Level 0 - 2 = Low Risk Oriented to surroundings, Maintained a safe environment, Educated pt \T\ family on fall prevention, incl call for assistance when getting out of bed, Assessed \T\ reinforced patient's understanding of fall precautions, Provided non-skid footwear, Hourly rounding (assess needs \T\ fall precautionary measures) done, Used ambulatory aids as needed (educated on \T\ assisted with), Used gait belt as appropriate. 19:25 Abuse screen: Denies threats or abuse. Nutritional screening: No deficits noted. pf1 Tuberculosis screening: No symptoms or risk factors identified. Assessment: 19:25 General: Appears in no apparent distress. comfortable, well groomed, well developed, pf1 Behavior is calm, cooperative, appropriate for age, quiet. 19:25 Pain: Complains of pain in right ear. Neuro: No deficits noted. Level of Consciousness pf1 is awake, alert, obeys commands, Oriented to person, place, time, situation. Cardiovascular: No deficits noted. Capillary refill < 3 seconds Patient's skin is warm and dry. Respiratory: No deficits noted. Airway is patent Respiratory effort is even, unlabored, Respiratory pattern is regular, symmetrical. GI: No deficits noted. No signs and/or symptoms were reported involving the gastrointestinal system. : No deficits noted. No signs and/or symptoms were reported regarding the genitourinary system. EENT: Reports pain in right ear. Derm: No deficits noted. No signs and/or symptoms reported regarding the dermatologic system. Musculoskeletal: No deficits noted. No signs and/or symptoms reported regarding the musculoskeletal system. Vital Signs: 19:25 BP 112 / 76; Pulse 79; Resp 18; Temp 98.2; Pulse Ox 100% on R/A; Weight 79.38 kg; Pain pf1 6/10; 19:25 Pain Scale: Adult pf1 ED Course: 17:53 Patient arrived in ED. ts1 17:59 Brain Arndt PA is PHCP. cp 17:59 Brain Forbes MD is Attending Physician. cp 19:05 Marzena Welch MD is Referral Physician. cp 19:25 Patient has correct armband on for positive identification. pf1 19:25 Arm band placed on right wrist. pf1 19:25 No provider procedures requiring assistance completed. pf1 19:25 Patient did not have IV access during this emergency room visit. pf1 11/25 03:39 Triage completed. pf1 Administered Medications: No medications were administered Medication: 11/24 19:25 VIS not applicable for this client. pf1 Outcome: 19:06 Discharge ordered by . cp 19:43 Discharged to home ambulatory. pf1 19:43 Condition: good 19:43 Discharge instructions given to patient, Instructed on discharge instructions, follow up and referral plans. Demonstrated understanding of instructions, follow-up care, medications, Prescriptions given X 2. 19:43 Patient left the ED. pf1 Signatures: Brain Arndt PA PA cp Kiersten Quinonez RN RN pf1 Venessa Epstein PAS PAS ts1
== END 2022-11-24 19:43 | disposition home or self-care (01) ==
LOC: ER 17:52
DX: H66.001 Acute suppurative otitis media without spontaneous rupture of ear drum, right ear (principal)
CPT/HCPCS: 99283

== ENCOUNTER 2023-10-21 12:37 | Emergency (ER) | payer SELFPAY ==
--- NOTE | 2023-10-21 14:41 | ER ---
Nurse's Notes [facility] Name: Lemuel Sotomayor Age: 22 yrs Sex: Male : 2000 Arrival Date: 10/21/2023 Time: 12:37 Bed IW10 Private MD: Diagnosis: Assessment: 10/20 13:10 Reassessment: called in waiting room, no response. ko1 ED Course: 12:41 Patient arrived in ED. mg5 12:46 [facility] jh7 12:46 Kale Flores MD is Attending Physician. jh7 14:41 Eliezer Tripp DO is Attending Physician. aa5 Administered Medications: No medications were administered Outcome: 14:41 Patient left the ED. aa5 Signatures: Joyce Hanson, RN RN aa5 Blanca Manuel FNP FNP 7 Licha Bee RN RN ko1 Chaparrita King mg5
== END 2023-10-21 14:41 | disposition left against medical advice (07) ==
LOC: ER 12:37
DX: Z02.9 Encounter for administrative examinations, unspecified (principal)

== ENCOUNTER 2023-12-17 18:17 | Emergency (ER) | payer SELFPAY ==
--- OUTSIDE RECORDS SUMMARY | 2023-12-17 18:20 | XMS REPORT | Continuity of Care Document ---
Author Name Unknown Address [address] [facility] [address] [facility] [address] [place] [address] [facility] thconnect Address [address] [facility] [address] [place] [address] Care Team Providers Care Pay Station Department Manager Name Role Phone PCP, PATIENT DOES NOT HAVE A Primary Care Physic bipin Unavailable WENDI HANSEN Attending Clinician Wendi Veliz DO Attending Clinician Doctor Unassigned, [place] Attending Clinician U WENDI Oakes Admitting Clinician Mimi little Problems Condition Name Condition Details Condition Category Status Onset Date Resolution Date Last Treatment Date Treating Clinician Comments Source LVH (left ventricula r hypertroph y) LVH (left ventricula r hypertroph y) Disease Active 07-07 00:00: 00 Overview: Formattin g of this note might be different from the original. Review of records indicate LVH on ECG done at age 12 (no date on record). [facility] Deviated nasal septum Deviated nasal septum Disease Active 07-07 00:00: 00 Overview: Formattin g of this note might be different from the original. Records on CT scan done show mild left deviation of nasal septum on CT done 0. Will scan records to EMR. [facility] Allergies, Adverse Reactions, Alerts Allergy Name Allergy Type Status Severity Reaction(s) Onset Date Inactive Date Treating Clinician Comments Source NO KNOWN ALLERGIE S Drug Class Active [facility] Social History Social Habit Start Date Stop Date Quantity Comments Source Sexual orientation [facility] Alcohol intake 2023-10-21 00:00:00 2023-10-21 00:00:00 Current non-drinker of alcohol (finding) [facility] History of Social function 2019-01-08 00:00:00 2019-01-08 00:00:00 [facility] Tobacco use and exposure 2018-06-05 00:00:00 2018-06-05 00:00:00 Smokeless tobacco non-user [facility] Sex Assigned At 2000 00:00:00 2000 00:00:00 [facility] Smoking Status Start Date Stop Date Source Never smoked tobacco [facility] Medications Ordered Medication Name Filled Medication Name Start Date Stop Date Current Medication? Ordering Clinician Indication Dosage Frequency Signature (SIG) Comments Components Source acetaminoph en (TYLENOL) tablet 650 mg 10-20 19:00: 00 10-20 19:04 :00 No 650mg 650 mg, Oral, ONCE, 1 dose, On Sat10/21/23 at 1400, ADRIANO [facility] TRAZODONE HCL (TRAZODONE ORAL) 2017-07 13:17: 26 Yes Take by mouth. [facility] Polyethylen e Glycol 3350 (MIRALAX) 17 gram powder 14 00:00: 00 Yes ONE PACKET DAILY UNTIL STOOLS ARE SOFT [facility] Immunizations Ordered Immunization Name Filled Immunization Name Date Status Comments Source Meningococcal Polysaccharide (groups A, C, Y and W-135) conjugate vaccine (MCV4P) 2013-02-17 00:00:00 Completed [facility] Varicella (varivax)(chicken pox) 2013-02-17 00:00:00 Completed [facility] TDAP 2012-12-24 00:00:00 Completed [facility] HEPATITIS A 2007-02-05 00:00:00 Completed [facility] DTAP 2005-01-29 00:00:00 Completed [facility] HEPATITIS A 2005-01-29 00:00:00 Completed [facility] Polio (IPV/OPV) 2005-01-29 00:00:00 Completed [facility] DTAP 2002-10-01 00:00:00 Completed [facility] HIB 4 Dose Schedule 2002-10-01 00:00:00 Completed [facility] DTAP 2001-12-10 00:00:00 Completed [facility] HIB 4 Dose Schedule 2001-12-10 00:00:00 Completed [facility] MMR 2001-12-10 00:00:00 Completed [facility] Polio (IPV/OPV) 2001-12-10 00:00:00 Completed [facility] Varicella (varivax)(chicken pox) 2001-12-10 00:00:00 Completed [facility] DTAP 2001-10-06 00:00:00 Completed [facility] HIB 4 Dose Schedule 2001-10-06 00:00:00 Completed [facility] Hep B, Adol or Pedi Dosage 2001-10-06 00:00:00 Completed [facility] Polio (IPV/OPV) 2001-10-06 00:00:00 Completed [facility] Pneumococcal 7 Conjugate, PCV7 (Prevnar7) 2001-10-06 00:00:00 Completed [facility] Hep B, Adol or Pedi Dosage 2001-04-14 00:00:00 Completed [facility] Hep B, Adol or Pedi Dosage 2000 00:00:00 Completed [facility] DTAP Unknown Completed [facility] DTAP Unknown Completed [facility] DTAP Unknown Completed [facility] DTAP Unknown Completed [facility] HIB 4 Dose Schedule Unknown Completed [facility] HIB 4 Dose Schedule Unknown Completed [facility] HIB 4 Dose Schedule Unknown Completed [facility] HEPATITIS A Unknown Completed [facility] HEPATITIS A Unknown Completed [facility] Hep B, Adol or Pedi Dosage Unknown Completed [facility] Hep B, Adol or Pedi Dosage Unknown Completed [facility] Hep B, Adol or Pedi Dosage Unknown Completed [facility] Meningococcal Polysaccharide (groups A, C, Y and W-135) conjugate vaccine (MCV4P) Unknown Completed [facility] MMR Unknown Completed [facility] Polio (IPV/OPV) Unknown Completed [facility] Polio (IPV/OPV) Unknown Completed [facility] Polio (IPV/OPV) Unknown Completed [facility] TDAP Unknown Completed [facility] Varicella (varivax)(chicken pox) Unknown Completed [facility] Varicella (varivax)(chicken pox) Unknown Completed [facility] Pneumococcal 7 Conjugate, PCV7 (Prevnar7) Unknown Completed [facility] Vital Signs Vital Name Observation Time Observation Value Comments S ource Systolic blood pressure 2023-10-21 18:42:00 125 mm[Hg] [facility] Diastolic blood pressure 2023-10-21 18:42:00 76 mm[Hg] [facility] Heart rate 2023-10-21 18:42:00 74 /min [facility] Body temperature 2023-10-21 18:42:00 36.78 [place] [facility] Respiratory rate 2023-10-21 18:42:00 18 /min [facility] Body height 2023-10-21 18:42:00 182.9 cm [facility] Body weight 2023-10-21 18:42:00 64.411 kg [facility] BMI 2023-10-21 18:42:00 19.26 kg/m2 [facility] Oxygen saturation in Arterial blood by Pulse oximetry 2023-10-21 18:42:00 99 /min [facility] Procedures Procedure Date / Time Performed Performing Clinicia n Source XR KNEE 3 VW RIGHT 2023-10-21 19:19:00 Abundio Hansen [facility] EXTERNAL PROVIDER RECORDS 2022-04-10 05:01:00 Doctor Unassigned, [place] [facility] Encounters Start Date/Time End Date/Time Encounter Type Admission Type Attending Clinicians Care Facility Care Department Encounter ID Source 2023-11-05 16:56:11 2023-11-05 16:56:11 Outpatient S[facility] SFA [id number] Albert Guerra Loco 2023-10-29 16:57:48 2023-10-29 16:57:48 Outpatient SFA SFA [id number] Albert F Loco 2023-10-22 09:21:14 2023-10-22 09:21:14 Outpatient SFA SFA [id number] Albert Adan 2023-10-21 13:49:00 2023-10-21 15:40:00 Emergency X WENDI HANSEN [facility] ERT [id number] [facility] 2023-10-21 13:49:00 2023-10-21 15:40:00 Emergency Wendi Hansen [facility] [id number] [id number] [facility] 2022-04-10 00:00:00 2022-04-10 00:00:00 Orders Only Doctor Unassigned, [place] [facility] 1..840.114 350.1.13.10 4.2.7.2.686 [id number] [facility] Results Test Description Test Time Test Comments Results Resul t Comments Source XR KNEE 3 VW RIGHT 2023-10-21 19:46:11 EXAM: XR KNEE 3 VW RIGHT HISTORY: 22 years-old Male; Provided indication: right knee pain . Noinjury. COMPARISON: None FINDINGS: Radiographs of the right knee demonstrate no acute fracture or traumaticdisloca tion. The alignment and joint spaces are maintained. A trace kneejoint effusion is seen. [facility] Notes Date/Time Note Provider Source 2023-10-21 15:39:57 [id number]:39:57 Pt discharged with diagnosis of acute pain of right knee. Printed and verbal instructions reviewed with and given to patient. No new prescriptions given for this visit. Pt verbalized understanding of teaching and recommended follow-up. Denies questions or concerns at this time. Pt ambulatory at discharge. Appears in no apparent distress. No ataxia noted. [id number] department GhxqMI1085-98-38C40:40:32Emergency department [id number] 879|[id number] for patient [id number]wr C-CDA narrative [id number] N Dewoody RN[id number] MVWMEYHHBHPUULDCAJ0648-38-76K56:40:321.2 .840.611559.1.72.3.15|1.2.840.296153.1.1 [id number] Brandy Hill RN [facility] 2023-10-21 13:48:04 6025-75-72Z84:48:04 Radha Forte is a 22 year old male c/o right knee pain since yesterday ,no injury [id number] department Triage dphfNK8838-43-21P78:48:17[facility] Triage [id number] 879|[id number] for patient xeiz53208-8Smshfxjng department NoteLNNARRATIVEFormatted C-CDA narrative [id number] M. Barton RN[id number] UMXZXMJYHAXMHJXLDT0439-22-63U86:48:171.2 .840.441548.1.72.3.15|1.2.840.535853.1.1 [id number] Jesusita Velasquez RN [facility] 2023-10-21 13:31:00 0095-18-36P65:31:00 [facility] Emergency Department NotePatient Name: Radha ForteDate of : 2000 22 year old maleTreatment Room: Room/bed info not foundMedical Record Number: [id number] Care Physician: No primary care provider on file.Patient Escorted by: Self [9]Mode of Arrival: Personal means [1]EMS Treatment Prior to ED Arrival:Travel and Exposure Screening:SymptomsDoes patient have any of these symptoms?: (not recorded)Exposure ScreeningHas patient had contact with someone with a communicable disease in the last month?: (not recorded)Diseases exposed to:: (not recorded)Is Patient ?: (not recorded)Exposure Date: (not recorded)Chief Complaint:No chief complaint on file.History of Present Illness:The patient presents from home for eval for right knee pain since yesterday. Denies any injury or trauma. No hip or ankle pain. No meds for sx. Pain is better with rest and worse with activity. Pain is 4/10.Here for eval.Past Medical History/Immunizations:Past Medical History:Diagnosis DateADHD (attention deficit hyperactivity disorder)Diagnosed Age 5Y, evaluated by Dr. Marin - adverse reactions with Daytrana. Most recent medication - Adderall - doing well.GERD (gastroesophageal reflux disease)InsomniaAllergies:No Known AllergiesPast Social History:Tobacco UseNever smoked or used smokeless tobacco.Alcohol UseNo.Drug UseNo.Sexual ActivityNot sexually active.Past Surgical History:History reviewed. No pertinent surgical history.Review of Systems:Review of SystemsConstitutional: Negative for chills and fever.Respiratory: Negative for cough and shortness of breath.Cardiovascular: Negative for chest pain.Gastrointestinal: Negative for abdominal pain and vomiting.Genitourinary: Negative for dysuria.Musculoskeletal: Positive for arthralgias. Negative for neck pain and neck stiffness.Skin: Negative for wound.Neurological: Negative for dizziness.Psychiatric/Behavioral: Negative for agitation.Endocrine: Negative for goiter.Physical Exam:ED Triage Vitals [10/21/23 1342]Weight 64.4 kg (142 lb)Actual or estimatedHeight 1.829 m (6')BP 125/76Pulse 74Resp 18Temp 36.8 ?C (98.2 ?F)Temp source OralSpO2 99 %Measured onPhysical ExamVitals and nursing note reviewed.Constitutional:Appearance: Normal appearance.HENT:Head: Normocephalic and atraumatic.Cardiovascular:Rate and Rhythm: Normal rate and regular rhythm.Pulses: Normal pulses.Pulmonary:Effort: Pulmonary effort is normal. No respiratory distress.Abdominal:General: There is no distension.Musculoskeletal:General: Normal range of motion.Cervical back: Normal range of motion and neck supple.Comments: FROM right knee.Negative anterior and posterior drawer sign right side.No swelling or tenderness about the right knee.Skin:General: Skin is warm and dry.Neurological:General: No focal deficit present.Mental Status: He is alert and oriented to person, place, and time.Radiology:XR KNEE 3 VW RIGHTPreliminary ResultEXAM: XR KNEE 3 VW RIGHTHISTORY: 22 years-old Male; Provided indication: right knee pain . Noinjury.COMPARISON: NoneFINDINGS:Radiographs of the right knee demonstrate no acute fracture or traumaticdislocation. The alignment and joint spaces are maintained. A trace kneejoint effusion is seen.IMPRESSIONNo acute osseous abnormality.Preliminary Report Dictated by Resident: Haim Cardenas Results:Lab Results - No data to displayEKG:If EKG completed, see Procedure Note.Orders and Treatments:Orders Placed This EncounterProceduresXR KNEE 3 VW RIGHTOrders Placed This EncounterMedicationsacetaminophen (TYLENOL) tablet 650 mgFirst Provider Eval:ED EventsDate/Time Event User Ftggjwov52/22/24 1338 Medical Screening Begins WENDI HANSEN DO --10/21/23 1338 First Provider Evaluation WENDI HANSEN DO --ED COURSEDiagnosis/Impression as of 10/21/23 1446Acute pain of right kneeProcedures:ProceduresMDM:Medical Decision MakingThe patient presents from home for eval for right knee pain since yesterday. No injury or trauma. No meds for sx. Pain better with rest and worse with movement.VSS here in the EC.FROM right knee.Negative anterior and posterior drawer test right side.No swelling or erythema to right knee.Will obtain xray to eval for fracture.Anticipate dc home later.1446 -the patient is doing well here in the ER.His x-ray shows no acute osseous injuries.He remained stable here in the ER and is okay for discharge home with PCP follow-up.Problems Addressed:Acute pain of right knee: acute illness or injuryAmount and/or Complexity of Data ReviewedRadiology: ordered and independent interpretation performed. Decision-making details documented in ED Course.RiskOTC drugs.Flowsheet Documentation:Scoring Tools:No data recordedDisposition/Condition:ED DispositionED DispositionDisch - HomeConditionStableComment--Discharge Medications:Patient's MedicationsSTART taking these medicationsNo medications on fileCONTINUE taking these medications which have NOT CHANGEDCETIRIZINE HCL (ZYRTEC ORAL) Take by mouth.DEXMETHYLPHENIDATE HCL (FOCALIN ORAL) Take by mouth.PANTOPRAZOLE SODIUM (PANTOPRAZOLE ORAL) Take by mouth.POLYETHYLENE GLYCOL 3350 (MIRALAX) 17 GRAM POWDER ONE PACKET DAILY UNTIL STOOLS ARE SOFTTRAZODONE HCL (TRAZODONE ORAL) Take by mouth.START taking Modified Medications as PrescribedNo medications on fileSTOP taking these medicationsNo medications on fileFollow-up:Electronically signed by:Wendi Hansen DO10/21/23 1446 [id number] Emergency department [id number]:46:46Physician Emergency department [id number] 879|[id number] for patient [id number] department NoteLNNARRATIVEFormatted C-CDA narrative text[address] Lb[id number] JCVUCPNEPNQRRWWENH6273-31-10K45:46:461.2 .840.791009.1.72.3.15|1.2.840.550922.1.1 [id number] [facility]"
--- NOTE | 2023-12-17 18:42 | EDPHYS ---
Physician Documentation [facility] Name: Lemuel Sotomayor Age: 23 yrs Sex: Male : 2000 Arrival Date: 12/17/2023 Time: 18:17 Bed IW6 Private MD: ED Physician Vladimir Gao HPI: 12/16 18:38 This 23 yrs old Male presents to ER via Unassigned with complaints of Ear Pain. kb 18:38 Pt is a 23 year old male who presents for right ear pain and drainage for one week. kb denies fever or any other symptoms. Historical: - Allergies: 18:40 No Known Allergies; ll1 - PMHx: 18:40 ADD/ADHD; Anxiety; ll1 - Immunization history:: Adult Immunizations up to date. - Infectious Disease History:: Denies. - Social history:: Smoking status: Patient reports the use of cigarette tobacco products, smokes one-half pack cigarettes per day. ROS: 18:38 Constitutional: As per HPI kb Exam: 18:38 Constitutional: This is a well developed, well nourished patient who is awake, alert, kb and in no acute distress. Head/Face: Normocephalic, atraumatic. Cardiovascular: Regular rate Respiratory: Respirations even and unlabored. No increased work of breathing. Talking in full sentences Skin: Warm, dry with normal turgor. Normal color. MS/ Extremity: Pulses equal, no cyanosis. Neurovascular intact. Full, normal range of motion. Neuro: Awake and alert, GCS 15, oriented to person, place, time, and situation. Moves all extremities. Normal gait. 18:38 ENT: Ear canal(s): purulent discharge, that is moderate, in the right canal, swelling, that is minimal, of the right canal, TM's: are normal, Vital Signs: 18:40 Resp 17; Temp 97.8; Weight 63.5 kg; Height 6 ft. 0 in. ; Pain 0/10; ll1 18:40 Body Mass Index 18.99 (63.50 kg, 182.88 cm) ll1 18:40 Pain Scale: Adult ll1 MDM: 18:22 Patient medically screened. kb 18:40 Differential diagnosis: otitis media, otitis externa, ruptured TM, foreign body, acute kb otalgia. Data reviewed: vital signs, nurses notes. Counseling: I had a detailed discussion with the patient and/or guardian regarding the historical points, exam findings, and any diagnostic results supporting the discharge/admit diagnosis, the need for outpatient follow up, a family practitioner, to return to the emergency department if symptoms worsen or persist or if there are any questions or concerns that arise at home. Administered Medications: No medications were administered Disposition Summary: 12/17/23 18:41 Discharge Ordered Notes: Location: Home kb Condition: Stable kb Diagnosis - Other otitis externa, right ear kb Followup: kb - With: Emergency Department - When: As needed - Reason: Worsening of condition Followup: kb - With: Private Physician - When: 2 - 3 days - Reason: Recheck today's complaints, Continuance of care, Re-evaluation by your physician Discharge Instructions: - Discharge Summary Sheet kb - Otitis Externa, Wtrd-lw-Ywzc kb - Ear Drops, Adult, Pdwh-vj-Ppvg kb Forms: - Medication Reconciliation Form kb - Antibiotic Education kb - Prescription Opioid Use kb - Patient Portal Instructions kb - Leadership Thank You Letter kb Prescriptions: - Ciprodex 0.3-0.1 % Otic drops, suspension - instill 4 drops OTIC route every 12 hours for 7 days , for ears ONLY; 1 unit; kb Refills: 0, Product Selection Permitted Signatures: Mirta Neff FNP-C FNP-Ckb Lewis, Lynsay, RN RN ll1
--- NOTE | 2023-12-17 18:42 | ER ---
Nurse's Notes [facility] Name: Lemuel Sotomayor Age: 23 yrs Sex: Male : 2000 Arrival Date: 12/17/2023 Time: 18:17 Bed IW6 Private MD: Diagnosis: Other otitis externa, right ear Presentation: 12/16 18:40 Chief complaint: Patient states: R ear drainage for 1 week. Coronavirus screen: Client ll1 denies travel out of the [place] in the last 14 days. At this time, the client does not indicate any symptoms associated with coronavirus-19. Ebola Screen: Patient denies travel to an Ebola-affected area in the 21 days before illness onset. 18:40 Method Of Arrival: Ambulatory ll1 18:45 Acuity: HARSH 4 iw 18:45 Initial Sepsis Screen: Does the patient meet any 2 criteria? No. Patient's initial iw sepsis screen is negative. Does the patient have a suspected source of infection? No. Patient's initial sepsis screen is negative. Risk Assessment: Do you want to hurt yourself or someone else? Patient reports no desire to harm self or others. Onset of symptoms was December 10, 2023. Triage Assessment: 18:40 General: Appears uncomfortable, Behavior is calm, cooperative, appropriate for age. iw Pain: Denies pain. EENT: Reports drainage from R ear for 1 week. No pain. Historical: - Allergies: 18:40 No Known Allergies; ll1 - PMHx: 18:40 ADD/ADHD; Anxiety; ll1 - Immunization history:: Adult Immunizations up to date. - Infectious Disease History:: Denies. - Social history:: Smoking status: Patient reports the use of cigarette tobacco products, smokes one-half pack cigarettes per day. Screenin:45 [facility] ED Fall Risk Assessment (Adult) History of falling in the last 3 months, iw including since admission No falls in past 3 months (0 pts) Confusion or Disorientation No (0 pts) Intoxicated or Sedated No (0 pts) Impaired Gait No (0 pts) Mobility Assist Device Used No (0 pt) Altered Elimination No (0 pt) Score/Fall Risk Level 0 - 2 = Low Risk Maintained a safe environment, Hourly rounding (assess needs \T\ fall precautionary measures) done. Abuse screen: Denies threats or abuse. Nutritional screening: No deficits noted. Tuberculosis screening: No symptoms or risk factors identified. Assessment: 18:45 Reassessment: No changes from previously documented assessment. Patient and/or family iw updated on plan of care and expected duration. Pain level reassessed. Patient is alert, oriented x 3, equal unlabored respirations, skin warm/dry/pink. Vital Signs: 18:40 Resp 17; Temp 97.8; Weight 63.5 kg; Height 6 ft. 0 in. ; Pain 0/10; ll1 18:40 Body Mass Index 18.99 (63.50 kg, 182.88 cm) ll1 18:40 Pain Scale: Adult ll1 ED Course: 18:19 Patient arrived in ED. mr 18:20 Mir[facility]ff [facility]-C [facility] kb 18:20 Vladimir Gao MD is Attending Physician. kb 18:41 Arm band placed on. ll1 18:45 Patient has correct armband on for positive identification. Bed in low position. Call iw light in reach. Provided Education on: finish all prescribed antibiotics. 18:45 No provider procedures requiring assistance completed. Patient did not have IV access iw during this emergency room visit. 19:11 Triage completed. iw Administered Medications: No medications were administered Medication: 19:12 VIS not applicable for this client. iw Outcome: 18:41 Discharge ordered by . kb 18:45 Patient left the ED. ll1 18:45 Discharged to home ambulatory, iw 18:45 Condition: stable 18:45 Discharge instructions given to patient, Instructed on discharge instructions, follow up and referral plans. medication usage, Demonstrated understanding of instructions, follow-up care, medications, Prescriptions given X 1, Signatures: Mirta Neff FNP-C FNP-CkNohelia Putnam, Reg Reg Emmy Valdivia, RN RN iw Catie Jaimes RN RN ll1 Corrections: (The following items were deleted from the chart) 19:11 08:45 Reassessment: No changes from previously documented assessment. Patient and/or iw family updated on plan of care and expected duration. Pain level reassessed. Patient is alert, oriented x 3, equal unlabored respirations, skin warm/dry/pink. iw
[2023-12-17 19:29] VITALS: TEMP 97.8
== END 2023-12-17 18:45 | disposition home or self-care (01) ==
LOC: ER 18:17
DX: H60.8X1 Other otitis externa, right ear (principal)